=== PATIENT | male | born 1990 | race Caucasian/White ===

== ENCOUNTER 2023-11-13 15:51 | Outpatient (CLI) | payer OTHER, SELFPAY ==
--- NOTE | ~2023-11-13 | US_ITS ---
EXAMINATION: US renal BI DATE: 11/13/2023 16:04 INDICATION: Hematuria TECHNIQUE: Multiple ultrasound grayscale images of the kidneys were obtained. COMPARISON: None. FINDINGS: The right kidney measures 12.0 x 5.0 x 5.3 cm. The left kidney measures 13.3 x 5.4 x 5.2 cm. The kidn eys demonstrate normal echogenicity. There is no hydronephrosis in either kidney. No stones identifi ed. The bladder is normal. IMPRESSION: 1. Normal kidneys without hydronephrosis. Reviewed, dictated and finalized at location A.
== END 2023-11-13 15:52 ==
LOC: MICIMG 15:52
PROVIDERS: PCP Physician Assistant Medical; Visit Provider Physician Assistant Medical
DX: R31.9 Hematuria, unspecified (principal)
CPT/HCPCS: 76775

== ENCOUNTER 2023-12-06 15:22 | Outpatient (CLI) | payer OTHER, SELFPAY ==
--- NOTE | ~2023-12-06 | CT_ITS ---
EXAMINATION: CT abdomen pelvis wo/w con DATE: 12/06/2023 16:01 INDICATION: Microscopic hematuria TECHNIQUE: Computed tomography (CT) of the abdomen and pelvis was performed without intravenous contr ast. CT of the abdomen and pelvis was then performed with a total of 130 mL Omnipaque-350 intravenous contrast using a double-bolus technique for simultaneous opacification of the renal parenchyma and r enal collecting system. Automated exposure control and iterative reconstruction technique were employ ed. The dose-length product was 2419.64 mGy-cm. COMPARISON: 01/13/2016 FINDINGS: Calcified right lower lobe nodule along with calcified right hilar lymph nodes consistent with old gr anulomatous disease. Heart size normal. No pericardial or pleural effusion. Liver, gallbladder, splee n, pancreas and bilateral adrenal glands are normal. Kidneys are normal and symmetric enhancement and no urolithiasis or hydronephrosis. No urothelial irregularities identified in the bilateral renal co llecting systems and ureters which are opacified in their entirety. Bladder is normal with bilateral contrast opacified ureteral jets. Bowels including the appendix are normal. No free intraperitoneal g as or fluid. No pathologically enlarged abdominal or pelvic lymphadenopathy. Small fat-containing rig ht inguinal hernia. Mild lower thoracic and minimal lumbar spondylosis. IMPRESSION: 1. Unremarkable study with normal kidneys and ureters with no urolithiasis. Reviewed, dictated and finalized at location B.
== END 2023-12-06 15:23 | disposition home or self-care (01) ==
PROVIDERS: PCP Physician Assistant; Visit Provider Physician Assistant
DX: R31.29 Other microscopic hematuria (principal)
CPT/HCPCS: 74178; Q9967